=== PATIENT | male | born 1935 | race Caucasian/White ===

== ENCOUNTER 2017-01-07 09:28 | Inpatient (IN) | payer OTHER ==
[~2017-01-07] VITALS: Ht 177.8 cm; Wt 96.1 kg
[2017-01-07 10:18] LABS: Basophils # (auto) 0 uL; Basophils % (auto) 0.3 % (0.0-2.0); Eosinophils # (auto) 0.1 uL; Eosinophils % (auto) 1.5 % (0.0-7.0); Hematocrit 41.3 % (41.0-53.0); Hemoglobin 12.9 g/dL (13.5-17.5); Lymphocytes # (auto) 1.4 uL; Lymphocytes % (auto) 18.3 % (10.0-50.0); Mean Corpuscular Hemoglobin 27.1 pg (28.0-32.0); Mean Corpuscular Hgb Conc. 31.3 g/dL (32.0-36.0); Mean Corpuscular Volume 86.5 fL (80.0-100.0); Mean Platelet Volume 9.6 fL (7.4-10.4); Monocytes # (auto) 0.8 uL; Monocytes % (auto) 10.1 % (0.0-12.0); Neutrophils # (auto) 5.4 uL; Neutrophils % (auto) 69.8 % (37.0-80.0); Platelet Count (auto) 200 10^3/uL (140-450); Red Cell Distribution Width 16.7 % (11.6-16.0); White Blood Cell 7.8 10^3/uL (4.4-10.8)
[2017-01-07] MEDS ORDERED: ALBUTEROL SULF 2.5 MG/0.5ML(0.5%) NEB SOLN HHN STA (10:29)
[2017-01-07] MEDS ORDERED: methylPREDNISolone SOD SUCC 125 MG/2 ML VL IV ONE (10:30)
[2017-01-07] MEDS ORDERED: IPRATROPIUM BROM 0.5 MG/2.5ML INH SOL NEB ONE (10:30)
[2017-01-07 10:32] LABS: Albumin 3.3 g/dL (3.4-5.0); BUN/Creatinine Ratio 16.1; Bilirubin, Total 0.5 mg/dL (0.2-1.0); Calcium 8.6 mg/dL (8.5-10.1); Magnesium 2.2 mg/dL (1.6-2.6); Potassium 4.6 mmol/L (3.5-5.1); Total Protein 7.4 g/dL (6.4-8.2)
[2017-01-07] MEDS ORDERED: DEXTROSE (50%) 50ML SYRG IV PRN (13:30)
[2017-01-07] MEDS ORDERED: LEVOFLOXACIN 250MG 50 ML IV ONE (13:30)
[2017-01-07] MEDS ORDERED: PROMETHAZINE-DM 5 ML ORAL SYRUP PO PRN (13:45)
[2017-01-07] MEDS ORDERED: DOCUSATE SOD 100 MG CAP PO PRN (13:45)
[2017-01-07] MEDS ORDERED: NITROGLYCERIN 0.4 MG SL TAB SL PRN (13:45)
[2017-01-07] MEDS ORDERED: ONDANSETRON HCL 4 MG/2 ML VIAL IV PRN (13:45)
[2017-01-07] MEDS ORDERED: MORPHINE SULF INJ 2 MG/ML SYRINGE 1ML IV PRN ×2 (13:45)
[2017-01-07] MEDS ORDERED: HYDROcodone-ACET 5/325MG TAB PO PRN (13:45)
[2017-01-07] MEDS ORDERED: TEMAZEPAM 15 MG CAP PO PRN (13:45)
[2017-01-07] MEDS ORDERED: ACETAMINOPHEN 325 MG TAB PO PRN (13:45)
[2017-01-07 13:52] VITALS: BP 144/76
[2017-01-07] MEDS ORDERED: ATENOLOL 25 MG TAB PO ONE (14:00)
[2017-01-07] MEDS ORDERED: ASPirin-EC 325mg tab PO ONE (14:00)
[2017-01-07] MEDS ORDERED: MULTIPLE VITAMIN TAB PO ONE (14:00)
[2017-01-07] MEDS: SODIUM CHLOR 0.9% PF (SALINE LOCK) 10ML VIAL IV SCH ×2 (14:03→21:54)
[2017-01-07] MEDS ORDERED: AZITHROMYCIN 500MG/D5W 250ML 250 ML IV ONE (14:30)
[2017-01-07 14:35] LABS: B-Type Natriuretic Peptide 124.54 pg/mL (0-100); Temperature: 23.5 C (20.0-25.0)
[2017-01-07] MEDS ORDERED: INSUINJ IJ (15:44)
[2017-01-07] MEDS ORDERED: SIMV80TA62 PO (15:44)
[2017-01-07] MEDS ORDERED: ATEN50TA PO (15:44)
[2017-01-07] MEDS ORDERED: INSU1INJ4 SC (15:44)
[2017-01-07] MEDS ORDERED: LISI40TA PO (15:44)
[2017-01-07] MEDS ORDERED: ASPI1TAB59 PO (15:44)
[2017-01-07 15:48] VITALS: BP 160/81
[2017-01-07] MEDS: ACCU-CHEK COMFORT CURVE STRIP VI SCH ×2 (17:00→21:55)
[2017-01-07] MEDS: InsuLIN REG 1unit/0.01ml Soln (100units/ml) SC SCH ×3 (17:00→22:23)
[2017-01-07] MEDS: INSULIN NPH Isophane (HUMAN) 1unit/0.01ml Susp(100units/ml) SC SCH (17:55)
[2017-01-07] MEDS: Boost Glucose Control 8 Ounces PO SCH (18:00)
[2017-01-07] MEDS: ALBUTEROL SULF 2.5 MG/0.5ML(0.5%) NEB SOLN NEB SCH (19:45)
[2017-01-07] MEDS: IPRATROPIUM BROM 0.5 MG/2.5ML INH SOL NEB SCH (19:45)
[2017-01-07 20:00] VITALS: BP 169/90
[2017-01-07] MEDS: ATENOLOL 25 MG TAB PO SCH (21:55)
[2017-01-07 22:00] VITALS: BP 169/90
[2017-01-07] MEDS ORDERED: FAMOTIDINE 20 MG TAB PO SCH (22:00)
[2017-01-07] MEDS ORDERED: ATORVASTATIN 20 MG TAB PO SCH (22:00)
[2017-01-07] MEDS: FLUTICASONE PROP NASAL SPR 0.05 % (50MCG) 16GM EACHNOSTRI SCH (22:00)
[2017-01-07 22:16] LABS: Urine Bilirubin Negative (Negative); Urine Color Yellow (Yellow); Urine Ketone Negative (Negative); Urine Nitrite Negative (Negative); Urine RBC 21 /hpf (0 - 3); Urine Squamous Epithelial Cell FEW /hpf (<5); Urine Urobilinogen Normal (Negative); Urine pH 5.5 (5.0-8.0)
[2017-01-07 22:19] LABS: Urine Blood 1+ /uL (Negative); Urine Glucose 4+ mg/dL (Normal)
[2017-01-08] MEDS: IPRATROPIUM BROM 0.5 MG/2.5ML INH SOL NEB SCH ×2 (00:40→06:33)
[2017-01-08] MEDS: ALBUTEROL SULF 2.5 MG/0.5ML(0.5%) NEB SOLN NEB SCH ×2 (00:40→06:33)
[2017-01-08 05:00] VITALS: BP 128/75
[2017-01-08 06:05] LABS: Basophils # (auto) 0 uL; Basophils % (auto) 0.3 % (0.0-2.0); Eosinophils # (auto) 0 uL; Hematocrit 38.3 % (41.0-53.0); Hemoglobin 12.1 g/dL (13.5-17.5); Lymphocytes # (auto) 1.1 uL; Lymphocytes % (auto) 12.4 % (10.0-50.0); Mean Corpuscular Hemoglobin 27.3 pg (28.0-32.0); Mean Corpuscular Hgb Conc. 31.6 g/dL (32.0-36.0); Mean Corpuscular Volume 86.4 fL (80.0-100.0); Mean Platelet Volume 9.8 fL (7.4-10.4); Monocytes # (auto) 0.8 uL; Monocytes % (auto) 8.8 % (0.0-12.0); Neutrophils # (auto) 6.7 uL; Neutrophils % (auto) 78.5 % (37.0-80.0); Platelet Count (auto) 172 10^3/uL (140-450); Red Cell Distribution Width 16.3 % (11.6-16.0); White Blood Cell 8.6 10^3/uL (4.4-10.8)
[2017-01-08 06:25] LABS: Albumin 2.9 g/dL (3.4-5.0); BUN/Creatinine Ratio 18.4; Bilirubin, Total 0.2 mg/dL (0.2-1.0); Calcium 8.7 mg/dL (8.5-10.1); Potassium 5.5 mmol/L (3.5-5.1); Total Protein 6.9 g/dL (6.4-8.2)
[2017-01-08] MEDS: SODIUM CHLOR 0.9% PF (SALINE LOCK) 10ML VIAL IV SCH (06:57)
[2017-01-08] MEDS: InsuLIN REG 1unit/0.01ml Soln (100units/ml) SC SCH ×3 (06:58→11:45)
[2017-01-08] MEDS: ACCU-CHEK COMFORT CURVE STRIP VI SCH ×2 (06:59→11:41)
[2017-01-08] MEDS: INSULIN NPH Isophane (HUMAN) 1unit/0.01ml Susp(100units/ml) SC SCH (07:09)
[2017-01-08 08:00] VITALS: BP 156/95
[2017-01-08] MEDS: Boost Glucose Control 8 Ounces PO SCH ×2 (08:24→12:23)
[2017-01-08 09:00] VITALS: BP 156/95
[2017-01-08] MEDS ORDERED: cefTRIAXone 1GM/50ML D5W 50 ML IV SCH (09:00)
[2017-01-08] MEDS ORDERED: LEVOFLOXACIN 250MG 50 ML IV SCH (09:00)
[2017-01-08] MEDS ORDERED: PATIENTS OWN MEDICATION PO SCH ×2 (10:00)
[2017-01-08] MEDS ORDERED: AZITHROMYCIN 500MG/D5W 250ML 250 ML IV SCH (10:00)
[2017-01-08] MEDS ORDERED: LISINOPRIL 20 MG TAB PO SCH (10:00)
[2017-01-08] MEDS ORDERED: MULTIPLE VITAMIN TAB PO SCH (10:00)
[2017-01-08] MEDS: FLUTICASONE PROP NASAL SPR 0.05 % (50MCG) 16GM EACHNOSTRI SCH ×2 (10:00→10:14)
[2017-01-08] MEDS ORDERED: FAMOTIDINE 20 MG TAB PO SCH (10:00)
[2017-01-08] MEDS ORDERED: ASPirin-EC 325mg tab PO SCH (10:00)
[2017-01-08] MEDS: ATENOLOL 25 MG TAB PO SCH (10:12)
[2017-01-08 12:27] VITALS: BP 151/86
[2017-01-08 13:00] VITALS: BP 151/86
== END 2017-01-08 13:57 | disposition home or self-care (01) | DRG 190 ==
LOC: ER 09:38 → TELE 09:39 → TELE-WESTW 18:42
PROVIDERS: ADMIT Internal Medicine; ATTEND Internal Medicine Geriatric Medicine
DX: J44.0 Chronic obstructive pulmonary disease with (acute) lower respiratory infection (principal); J18.1 Lobar pneumonia, unspecified organism; J45.901 Unspecified asthma with (acute) exacerbation; E44.1 Mild protein-calorie malnutrition; J96.10 Chronic respiratory failure, unspecified whether with hypoxia or hypercapnia; J44.1 Chronic obstructive pulmonary disease with (acute) exacerbation; D63.1 Anemia in chronic kidney disease; E78.5 Hyperlipidemia, unspecified; E11.22 Type 2 diabetes mellitus with diabetic chronic kidney disease; E11.21 Type 2 diabetes mellitus with diabetic nephropathy; N18.3 Chronic kidney disease, stage 3 (moderate); F17.210 Nicotine dependence, cigarettes, uncomplicated; I12.9 Hypertensive chronic kidney disease with stage 1 through stage 4 chronic kidney disease, or unspecified chronic kidney disease; I25.10 Atherosclerotic heart disease of native coronary artery without angina pectoris; Z83.3 Family history of diabetes mellitus; I25.2 Old myocardial infarction; Z79.4 Long term (current) use of insulin; Z95.1 Presence of aortocoronary bypass graft; Z90.49 Acquired absence of other specified parts of digestive tract; Z88.0 Allergy status to penicillin; Z79.899 Other long term (current) drug therapy; Z88.1 Allergy status to other antibiotic agents
CPT/HCPCS: 36415; 71020; 80053; 81001; 82962; 83036; 83540; 83605; 83735; 83880; 84443; 84484; 85025; 87040; 87086; 93005; 94640; 94644; 94761; 96365; 96368; 97001; J0696; J1815

== ENCOUNTER 2017-05-15 10:23 | Emergency (ER) | payer OTHER ==
[~2017-05-15] VITALS: Ht 177.8 cm; Wt 99.8 kg
[~2017-05-15 10:23] MED LIST: ASPI1TAB59 PO; ATEN50TA PO; INSU1INJ4 SC; INSUINJ IJ; LISI40TA PO; SIMV80TA62 PO
[2017-05-15 11:23] LABS: Basophils # (auto) 0.1 uL; Basophils % (auto) 0.5 % (0.0-2.0); CONDITION Y; Eosinophils # (auto) 0.5 uL; Eosinophils % (auto) 4.6 % (0.0-7.0); Hematocrit 40.8 % (41.0-53.0); Hemoglobin 13.7 g/dL (13.5-17.5); Lymphocytes # (auto) 2.3 uL; Lymphocytes % (auto) 21.8 % (10.0-50.0); Mean Corpuscular Hemoglobin 28.5 pg (28.0-32.0); Mean Corpuscular Hgb Conc. 33.7 g/dL (32.0-36.0); Mean Corpuscular Volume 84.8 fL (80.0-100.0); Mean Platelet Volume 9.3 fL (7.4-10.4); Monocytes # (auto) 0.8 uL; Monocytes % (auto) 7.4 % (0.0-12.0); Neutrophils % (auto) 65.7 % (37.0-80.0); Platelet Count (auto) 222 10^3/uL (140-450); Red Cell Distribution Width 16.1 % (11.6-16.0); White Blood Cell 10.7 10^3/uL (4.4-10.8)
[2017-05-15 11:54] LABS: Albumin 3.2 g/dL (3.4-5.0); BUN/Creatinine Ratio 10.7; Bilirubin, Total 0.4 mg/dL (0.2-1.0); Calcium 8.5 mg/dL (8.5-10.1); Potassium 4.2 mmol/L (3.5-5.1); Total Protein 7.5 g/dL (6.4-8.2)
[2017-05-15 12:08] VITALS: BP 172/78
[2017-05-15] MEDS ORDERED: HYDROcodone-ACET 7.5/325MG TAB PO ONE (12:15)
[2017-05-15] MEDS ORDERED: KETOROLAC TROMETH 60MG/2ML VIAL IM ONE (12:15)
== END 2017-05-15 14:36 | disposition home or self-care (01) ==
LOC: ER 10:23
DX: M10.072 Idiopathic gout, left ankle and foot (principal); F17.210 Nicotine dependence, cigarettes, uncomplicated; I25.10 Atherosclerotic heart disease of native coronary artery without angina pectoris; J44.9 Chronic obstructive pulmonary disease, unspecified; E11.9 Type 2 diabetes mellitus without complications; E78.5 Hyperlipidemia, unspecified; I10 Essential (primary) hypertension; I25.2 Old myocardial infarction; Z95.1 Presence of aortocoronary bypass graft; Z90.49 Acquired absence of other specified parts of digestive tract; Z79.4 Long term (current) use of insulin; Z91.012 Allergy to eggs
CPT/HCPCS: 36415; 73610; 73630; 80053; 82962; 84550; 85025; 96372; 99285; J1885